=== PATIENT | female | born 1950 | race Caucasian/White ===

== ENCOUNTER 2018-05-27 17:25 | Emergency (ER) | payer BC, MEDICARE ==
[~2018-05-27] VITALS: Ht 162.6 cm; Wt 104.3 kg
[2018-05-27 18:26] VITALS: BP 145/91
[2018-05-27] MEDS ORDERED: DEXAMETHASONE SOD PHOS 10MG/1ML VIAL INJ IM ONE (19:30)
[2018-05-27] MEDS ORDERED: KETOROLAC TROMETH 60MG/2ML VIAL IM ONE (19:30)
== END 2018-05-27 19:32 | disposition home or self-care (01) ==
LOC: ER 17:30
DX: S42.291A Other displaced fracture of upper end of right humerus, initial encounter for closed fracture (principal); W06.XXXA Fall from bed, initial encounter; Y93.89 Activity, other specified; Y99.8 Other external cause status; Y92.89 Other specified places as the place of occurrence of the external cause
CPT/HCPCS: 73060; 96372; 99283; J1100; J1885

== ENCOUNTER 2022-03-02 15:56 | Emergency (ER) | payer BC ==
[~2022-03-02] VITALS: Ht 162.6 cm; Wt 109.1 kg
[2022-03-02] MEDS ORDERED: methylPREDNISolone SOD SUCC 125 MG/2 ML VL IM ONE (20:15)
[2022-03-02] MEDS ORDERED: KETOROLAC TROMETH 60MG/2ML VIAL IM ONE (20:15)
[2022-03-02] MEDS ORDERED: BACL20TA PO (20:24)
[2022-03-02 21:09] VITALS: BP 136/87
== END 2022-03-02 20:33 | disposition home or self-care (01) ==
LOC: ER 15:56
DX: S39.011A Strain of muscle, fascia and tendon of abdomen, initial encounter (principal); Z88.0 Allergy status to penicillin; W18.39XA Other fall on same level, initial encounter; Y93.89 Activity, other specified; Y92.89 Other specified places as the place of occurrence of the external cause; Y99.8 Other external cause status
CPT/HCPCS: 93971; 96372; 99284; J1885; J2930